=== PATIENT | female | born 1960 | race Two or more races ===

== ENCOUNTER → 2016-08-16 | Day surgery (SDC) | payer OTHER ==
[~2016-08-16] VITALS: Ht 167.6 cm; Wt 48.8 kg
[~2016-08-16] MED LIST: FENTAnyl 50 MCG/ML VIAL ONE; MIDAZOLAM 1 MG/ML 2 ML INJ ONE
[2016-08-16 17:02] VITALS: Ht 167.6 cm; Wt 48.8 kg
[2016-08-16 17:44] VITALS: BP 127/74; PULSE 89; RESP 18
[2016-08-16 18:53] VITALS: BP 112/67; PULSE 77; RESP 26
--- NOTE | 2016-08-16 19:41 | GILP ---
DATE OF PROCEDURE: NAME OF PROCEDURES: 1. Esophagogastroduodenoscopy and biopsy. 2. Colonoscopy. SURGEON: Sonia Neil MD PREOPERATIVE DIAGNOSES: 1. Chronic heartburn. 2. Screening colonoscopy. POSTOPERATIVE DIAGNOSES: 1. Gastroesophageal reflux disease. 2. Gastritis with erosions. 3. Gastric mucosal biopsies were taken for Helicobacter pylori test. 4. Colonoscopy all the way to the cecum. 5. Internal hemorrhoids. 6. No colon neoplasm was identified. INDICATION FOR THE PROCEDURE: Ms. Apryl Steinberg is a 55-year-old female patient who had chronic hear tburn not responding to therapy. The patient also needed screening colonoscopy. The procedures and possible complications were well explained to the patient. She understood and co nsented to the procedures. DESCRIPTION OF PROCEDURE: Under the influence of fentanyl and Versed, the gastroscope was carefully introduced into the esophagus, and under direct vision, it was advanced to the stomach and through the pylorus into the duodenal bulb and descending duodenum. FINDINGS: ESOPHAGUS: The patient had gastroesophageal reflux disease. STOMACH: She had gastritis with erosions. Gastric mucosal biopsies were taken for H. pylori test. DUODENUM: Normal. The colonoscope was carefully introduced in the rectum, and under direct vision, it was advanced all the way to the cecum. FINDINGS: The patient had internal hemorrhoids. No colon neoplasm was identified. She tolerated the procedures very well, and there was no complication from the procedures. At the e nd of the procedures, she was awake with stable vital signs, and she was discharged home to the care of her family. IMPRESSION: 1. Gastroesophageal reflux disease. 2. Gastritis with erosions. 3. Gastric mucosal biopsies were taken for Helicobacter pylori test. 4. Colonoscopy all the way to the cecum. 5. Internal hemorrhoids. 6. No colon neoplasm was identified. PLAN: 1. Pantoprazole 40 mg p.o. q.a.m. 2. Next screening colonoscopy in 10 years. 3. Await H. pylori test report. Dictated By: SONIA KHALIL/CHAYA Conf#: [id number] DID#: [id number]
== END | disposition home or self-care (01) ==
LOC: GIL 14:19
PROVIDERS: ATTEND Internal Medicine Gastroenterology
DX: Z12.11 Encounter for screening for malignant neoplasm of colon (principal); K21.9 Gastro-esophageal reflux disease without esophagitis; K64.8 Other hemorrhoids; K29.60 Other gastritis without bleeding
CPT/HCPCS: 43239; 45378; 87081; J2250; J3010; Z7610